=== PATIENT | male | born 1945 | race Hispanic/Latino ===

== ENCOUNTER → 2019-07-13 | Outpatient (CLI) | payer OTHER ==
[~2019-07-13] MED LIST: AMLO10TA7 PO; ASPI-1197 PO; BACL10TA PO; CLOP75TA14 PO; FAMO20TA8 PO; GLIP5TAB11 PO; METF-446 PO; METO25TA6 PO; RAMI10CA69 PO; ROSU20TA23 PO; SERT50TA12 PO; SOLI5 PO; VALS1TAB75 PO
== END | disposition home or self-care (01) ==
LOC: SHCH 10:00
PROVIDERS: ATTEND Internal Medicine Cardiovascular Disease
DX: I51.7 Cardiomegaly (principal)
CPT/HCPCS: 93306

== ENCOUNTER → 2019-07-13 | Outpatient (CLI) | payer OTHER ==
[~2019-07-13] MED LIST changes: +REGADENOSON 0.4 MG/5 ML PF SYG IVP SCH
== END | disposition home or self-care (01) ==
LOC: SHCH 07:49
PROVIDERS: ATTEND Internal Medicine Cardiovascular Disease
DX: I25.119 Atherosclerotic heart disease of native coronary artery with unspecified angina pectoris (principal); I10 Essential (primary) hypertension; I51.7 Cardiomegaly; I73.9 Peripheral vascular disease, unspecified; Z98.61 Coronary angioplasty status
CPT/HCPCS: 78452; 93017; 93306; 96374; A9500 ×2; J2785

== ENCOUNTER → 2019-07-20 | Outpatient (CLI) | payer OTHER ==
[~2019-07-20] MED LIST changes: -REGADENOSON 0.4 MG/5 ML PF SYG IVP SCH
== END | disposition home or self-care (01) ==
LOC: SHCH 10:09
PROVIDERS: ATTEND Internal Medicine Cardiovascular Disease
DX: I73.9 Peripheral vascular disease, unspecified (principal)
CPT/HCPCS: 93925

== ENCOUNTER → 2020-12-01 | Outpatient (CLI) | payer OTHER ==
[~2020-12-01] MED LIST changes: +AMLO-258 PO; -AMLO10TA7 PO; +SERT-439 PO; -SERT50TA12 PO; -VALS1TAB75 PO; +VALS1TAB76 PO
== END | disposition home or self-care (01) ==
LOC: SHCH 07:59
PROVIDERS: ATTEND Internal Medicine Cardiovascular Disease
DX: I10 Essential (primary) hypertension (principal)
CPT/HCPCS: 93975

== ENCOUNTER → 2021-06-01 | Outpatient (CLI) | payer OTHER | END | disposition home or self-care (01) | LOC: SHCH 11:06 | PROVIDERS: ATTEND Internal Medicine Cardiovascular Disease | DX: I70.203 Unspecified atherosclerosis of native arteries of extremities, bilateral legs (principal); I25.10 Atherosclerotic heart disease of native coronary artery without angina pectoris | CPT/HCPCS: 93925 ==

== ENCOUNTER → 2021-06-02 | Outpatient (CLI) | payer OTHER ==
[~2021-06-02] VITALS: Ht 162.6 cm; Wt 98.0 kg
[~2021-06-02] MED LIST changes: +REGADENOSON 0.4 MG/5 ML PF SYG IVP SCH
== END | disposition home or self-care (01) ==
LOC: SHCH 08:06
PROVIDERS: ATTEND Internal Medicine Cardiovascular Disease
DX: I25.10 Atherosclerotic heart disease of native coronary artery without angina pectoris (principal)
CPT/HCPCS: 78452; 93017; 96374; A9500 ×2; J2785

== ENCOUNTER 2021-07-31 09:00 | Day surgery (SDC) | payer OTHER ==
[2021-07-27 12:25] LABS: BASOPHILS % (AUTO) 0.6 % (0.0-5.0); EOSINOPHILS % (AUTO) 3.5 % (0.0-8.0); HEMATOCRIT 35.6 % (42-54); LYMPHOCYTES % (AUTO) 30.1 % (21.0-51.0); MEAN CORPUSCULAR HEMOGLOBIN 29.4 pg (27.0-33.0); MEAN CORPUSCULAR HGB CONC 31.5 g/dL (32.0-36.0); MEAN CORPUSCULAR VOLUME 93.4 fL (79-99); MONOCYTES % (AUTO) 7.9 % (3.0-13.0); NEUTROPHILS % (AUTO) 57.7 % (40.0-77.0); PLATELET COUNT (AUTO) 151 K/uL (130-400); RED BLOOD CELL COUNT(AUTO) 3.81 MIL/uL (4.50-6.20); RED CELL DISTRIBUTION WIDTH 12.6 % (11.0-15.5); WHITE BLOOD COUNT (AUTO) 8.3 K/uL (4.8-10.8)
[2021-07-27 12:28] LABS: APPEARANCE,URINE Clear (CLEAR); BILIRUBIN,URINE Negative (NEGATIVE); COLOR,URINE Yellow (YELLOW); GLUCOSE, URINE (UA) Negative (NEGATIVE); KETONES,URINE Trace mg/dL (NEGATIVE); LEUKOCYTE ESTERASE ,URINE Negative (NEGATIVE); NITRATE,URINE Negative (NEGATIVE); OCCULT BLOOD,URINE Negative (NEGATIVE); PROTEIN,URINE Trace mg/dL (NEGATIVE)
[2021-07-27 12:35] LABS: CREATININE 1.9 mg/dL (0.5-1.5); POTASSIUM 4.6 mmol/L (3.5-5.1)
[2021-07-27 12:38] LABS: INR 1.02 (0.85-1.15); PROTHROMBIN TIME 11.1 SEC (9.6-11.6)
[2021-07-27 12:39] LABS: PARTIAL THROMBOPLASTIN TIME 24.9 SEC (26.3-35.5)
[2021-07-27 13:06] LABS: BACTERIA,URINE Few /HPF (None Seen); RBC,URINE None Seen /HPF (0-1)
[2021-07-27 13:07] LABS: HYALINE CASTS, URINE 0-1 /LPF (0-1 /LPF); SQUAMOUS EPITHELIAL CELL,UR Rare /HPF (0-2); WBC,URINE 0-1 /HPF (0-1)
[2021-07-31] VITALS (9 sets, daily range): BP systolic 104–170; BP diastolic 55–89
[~2021-07-31] VITALS: Ht 162.6 cm; Wt 96.2 kg
[~2021-07-31 09:00] MED LIST changes: -AMLO-258 PO; -ASPI-1197 PO; +ASPI-1443 PO; -BACL10TA PO; -FAMO20TA8 PO; +HYDR200T4 PO; +ISOS30TA92 PO; -METF-446 PO; +METO-391 PO; -METO25TA6 PO; +NAPR-1023 PO; +OLME40TA18 PO; +OMEG-148 PO; +PYRI-12 PO; -RAMI10CA69 PO; -REGADENOSON 0.4 MG/5 ML PF SYG IVP SCH; -ROSU20TA23 PO; +ROSU20TA31 PO; +SOLI10TA7 PO; -SOLI5 PO; +TAMS-1 PO; -VALS1TAB76 PO; +vitamin b12 PO
[2021-07-31 10:05] LABS: CREATININE 1.7 mg/dL (0.5-1.5); POTASSIUM 4.8 mmol/L (3.5-5.1)
[2021-07-31] MEDS ORDERED: 0.9%NACL 1000ML 1,000 ML IV ONE (10:36)
[2021-07-31] MEDS ORDERED: MIDAZOLAM HCL 1 MG/ML 2ML VIAL ONE (13:56)
[2021-07-31] MEDS ORDERED: IOHEXOL 350 MG/ML 100ML INFUS..BTL IV ONE (13:56)
[2021-07-31] MEDS ORDERED: MEPERIDINE-PF 25 MG/ML SYG ONE (13:56)
[2021-07-31] MEDS ORDERED: NITROGLYCERIN 2 MG VIAL IV ONE (13:56)
[2021-07-31] MEDS ORDERED: IOHEXOL-350 50ML VIAL IV ONE (13:56)
[2021-07-31] MEDS ORDERED: LIDOCAINE HCL 400MG/20ML VIAL ONE (13:56)
[2021-07-31] MEDS ORDERED: SODIUM BICARB 50MEQ 50ML VIAL 50 ML ONE (14:07)
[2021-07-31] MEDS ORDERED: 0.9%NACL 1000ML 1,000 ML IV SCH (15:30)
[2021-07-31] MEDS ORDERED: DEXTROSE 50%-WATER 50 ML DISP.SYRIN IV PRN (15:30)
[2021-07-31] MEDS ORDERED: GLUCAGON 1MG KIT 1 MG ML IM PRN (15:30)
[2021-07-31] MEDS ORDERED: INSULIN HUMULIN R 100 UNIT/ML 3ML SQ SCH (16:30)
== END 2021-07-31 19:40 | disposition home or self-care (01) ==
LOC: DAH 09:00
PROVIDERS: ATTEND Internal Medicine Cardiovascular Disease
DX: I25.119 Atherosclerotic heart disease of native coronary artery with unspecified angina pectoris (principal); I10 Essential (primary) hypertension; E78.5 Hyperlipidemia, unspecified; E11.9 Type 2 diabetes mellitus without complications; E66.9 Obesity, unspecified; G47.33 Obstructive sleep apnea (adult) (pediatric); Z68.36 Body mass index [BMI] 36.0-36.9, adult; Z79.01 Long term (current) use of anticoagulants; Z95.5 Presence of coronary angioplasty implant and graft; Z79.82 Long term (current) use of aspirin; Z79.899 Other long term (current) drug therapy; Z98.890 Other specified postprocedural states
CPT/HCPCS: 36415 ×2; 71045; 80048 ×2; 81001; 82948 ×2; 85025; 85610; 85730; 93005; 93458; A4215; A4216; A4221; A4222; A4223 ×3; A4606; A4663; C1760; C1894; J1644; J2175; J2250; J3490 ×3; J7030; Q9965; Q9967 ×2; 99156; 99157

== ENCOUNTER 2022-03-30 10:57 | Observation (INO) | payer OTHER ==
[~2022-03-30] VITALS: Ht 162.6 cm; Wt 117.9 kg
[~2022-03-30 10:57] MED LIST changes: -NAPR-1023 PO
[2022-03-30 11:46] LABS: BASOPHILS % (AUTO) 0.3 % (0.0-5.0); HEMATOCRIT 37.3 % (42-54); LYMPHOCYTES % (AUTO) 9.5 % (21.0-51.0); MEAN CORPUSCULAR HEMOGLOBIN 29.6 pg (27.0-33.0); MEAN CORPUSCULAR HGB CONC 32.7 g/dL (32.0-36.0); MEAN CORPUSCULAR VOLUME 90.5 fL (79-99); MONOCYTES % (AUTO) 10.8 % (3.0-13.0); NEUTROPHILS % (AUTO) 78.8 % (40.0-77.0); PLATELET COUNT (AUTO) 135 K/uL (130-400); RED BLOOD CELL COUNT(AUTO) 4.12 MIL/uL (4.50-6.20); WHITE BLOOD COUNT (AUTO) 6.2 K/uL (4.8-10.8)
[2022-03-30 11:56] LABS: CREATININE 1.9 mg/dL (0.5-1.5); POTASSIUM 4.3 mmol/L (3.5-5.1)
[2022-03-30 12:01] LABS: BILIRUBIN,TOTAL 0.3 mg/dL (0.2-1.0); TOTAL PROTEIN, SERUM 7.8 g/dL (6.0-8.3)
[2022-03-30] MEDS ORDERED: METO-408 PO (14:55)
[2022-03-30] MEDS ORDERED: ISOS30TA92 PO (14:55)
[2022-03-30] MEDS ORDERED: CLON1PAT13 TD (14:55)
[2022-03-30] MEDS ORDERED: SOLI10TA7 PO (14:55)
[2022-03-30] MEDS ORDERED: PANT40TA54 PO (14:55)
[2022-03-30] MEDS ORDERED: NAPR-1023 PO (14:55)
[2022-03-30] MEDS ORDERED: TETANUS/DIPHTHERIA TOXOID [ADULT] 0.5 ML VIAL IM ONE (15:00)
[2022-03-30] MEDS ORDERED: NAPROXEN 500 MG TABLET PO PRN (15:30)
[2022-03-30] MEDS: INSULIN HUMULIN R 100 UNIT/ML 3ML SQ SCH ×2 (16:30→20:35)
[2022-03-30] MEDS: DEXTROSE 5 % AND 0.9 % NACL 1,000 ML IV SCH (17:24)
[2022-03-30] MEDS: ISOSORBIDE MONO 30MG SR TAB PO SCH (20:24)
[2022-03-30] MEDS: HYDROXYCHLOROQUINE SULFATE 200 MG TAB PO SCH (20:35)
[2022-03-30] MEDS ORDERED: ISOSORBIDE MONO 30MG SR TAB PO SCH (21:00)
[2022-03-30] MEDS ORDERED: SOLIFENACIN SUCCINATE 10 MG PO SCH (21:00)
[2022-03-30] MEDS ORDERED: (Rosuvastatin Calcium 20 MG) PO SCH (21:00)
[2022-03-30] MEDS ORDERED: PANTOPRAZOLE 40 MG TAB DR PO SCH (21:00)
[2022-03-31] MEDS: DEXTROSE 5 % AND 0.9 % NACL 1,000 ML IV SCH ×2 (04:46→17:58)
[2022-03-31 06:19] LABS: APPEARANCE,URINE CLEAR (CLEAR); BILIRUBIN,URINE NEGATIVE (NEGATIVE); COLOR,URINE YELLOW (YELLOW); GLUCOSE, URINE (UA) NEGATIVE (NEGATIVE); KETONES,URINE NEGATIVE (NEGATIVE); LEUKOCYTE ESTERASE ,URINE NEGATIVE (NEGATIVE); NITRATE,URINE NEGATIVE (NEGATIVE); OCCULT BLOOD,URINE TRACE-INTACT (NEGATIVE); PROTEIN,URINE 30 mg/dL (NEGATIVE); UROBILINOGEN,URINE 0.2 mg/dL (0.2-1.0)
[2022-03-31 06:46] LABS: BACTERIA,URINE None Seen /HPF (None Seen); RBC,URINE 0-1 /HPF (0-1); WBC,URINE None Seen /HPF (0-1)
[2022-03-31 06:47] LABS: SQUAMOUS EPITHELIAL CELL,UR Rare /HPF (0-2)
[2022-03-31] MEDS: INSULIN HUMULIN R 100 UNIT/ML 3ML SQ SCH ×3 (07:30→16:30)
[2022-03-31] MEDS ORDERED: GLUCAGON 1MG KIT 1 MG ML IM PRN (08:30)
[2022-03-31] MEDS ORDERED: KCL 20 MEQ ERTAB PO PRN (08:30)
[2022-03-31] MEDS ORDERED: POTASSIUM CHLORIDE 20MEQ/100ML 100 ML IV PRN (08:30)
[2022-03-31] MEDS ORDERED: CLONIDINE HCL 0.1 MG TABLET PO PRN (08:30)
[2022-03-31] MEDS ORDERED: POTASSIUM CHLORIDE 10% ELIXIR 20 MEQ/15 ML UDCUP PO PRN (08:30)
[2022-03-31] MEDS ORDERED: LIDOCAINE HCL-MPF 1% 2ML VIAL IV PRN (08:30)
[2022-03-31] MEDS ORDERED: DEXTROSE 50%-WATER 50 ML DISP.SYRIN IV PRN (08:30)
[2022-03-31 08:45] LABS: BASOPHILS % (AUTO) 0.5 % (0.0-5.0); EOSINOPHILS % (AUTO) 1.2 % (0.0-8.0); HEMATOCRIT 39.2 % (42-54); LYMPHOCYTES % (AUTO) 38.9 % (21.0-51.0); MEAN CORPUSCULAR HEMOGLOBIN 29.8 pg (27.0-33.0); MEAN CORPUSCULAR HGB CONC 32.7 g/dL (32.0-36.0); MEAN CORPUSCULAR VOLUME 91.2 fL (79-99); MONOCYTES % (AUTO) 12.1 % (3.0-13.0); PLATELET COUNT (AUTO) 149 K/uL (130-400); RED CELL DISTRIBUTION WIDTH 13.1 % (11.0-15.5); WHITE BLOOD COUNT (AUTO) 7.5 K/uL (4.8-10.8)
[2022-03-31] MEDS ORDERED: Olmesartan Medoxomil 40 MG PO SCH (09:00)
[2022-03-31] MEDS ORDERED: FISH OIL 1000 MG/CAP PO SCH (09:00)
[2022-03-31] MEDS ORDERED: TAMSULOSIN HCL 0.4 MG CAP.ER.24H PO SCH (09:00)
[2022-03-31] MEDS ORDERED: CYANOCOBALAMIN (VITAMIN B-12) 1,000 MCG TABLET PO SCH (09:00)
[2022-03-31] MEDS ORDERED: METOPROLOL SUCCINATE 25 MG TAB.SR.24H PO SCH (09:00)
[2022-03-31] MEDS ORDERED: ASPIRIN 81 MG EC TAB PO SCH (09:00)
[2022-03-31] MEDS ORDERED: PYRIDOXINE HCL 50 MG TABLET PO SCH (09:00)
[2022-03-31] MEDS ORDERED: LIDOCAINE HCL MPF 1% 5ML VIAL IV PRN (09:00)
[2022-03-31] MEDS: HYDROXYCHLOROQUINE SULFATE 200 MG TAB PO SCH (09:00)
[2022-03-31 09:11] LABS: CREATININE 1.7 mg/dL (0.5-1.5); POTASSIUM 4.3 mmol/L (3.5-5.1)
[2022-03-31] MEDS: ISOSORBIDE MONO 30MG SR TAB PO SCH (09:32)
[2022-03-31] MEDS ORDERED: BENZONATATE 100 MG CAPSULE PO PRN (10:00)
[2022-03-31] MEDS ORDERED: GUAIFENESIN-DM 200/20 MG 10 ML PO PRN (10:00)
[2022-03-31] MEDS ORDERED: ENOXAPARIN SODIUM 100 MG/1 ML SQ SCH (12:00)
[2022-03-31] MEDS ORDERED: NIRM1TAB5 PO (15:04)
[2022-03-31 19:21] VITALS: BP 126/64
[2022-04-01] MEDS ORDERED: ENOXAPARIN SODIUM 120 MG/0.8ML SQ SCH (09:00)
[2022-04-06] MEDS ORDERED: CLONIDINE 0.2 MG/ 24 HR PATCH TD SCH (09:00)
== END 2022-03-31 20:34 | disposition home or self-care (01) ==
LOC: EDH 10:57 → EDHIP 15:04
PROVIDERS: ADMIT Internal Medicine Critical Care Medicine; ATTEND Internal Medicine Critical Care Medicine
DX: U07.1 COVID-19 (principal); R55 Syncope and collapse; E11.649 Type 2 diabetes mellitus with hypoglycemia without coma; R79.89 Other specified abnormal findings of blood chemistry; S01.511A Laceration without foreign body of lip, initial encounter; E11.22 Type 2 diabetes mellitus with diabetic chronic kidney disease; I12.9 Hypertensive chronic kidney disease with stage 1 through stage 4 chronic kidney disease, or unspecified chronic kidney disease; N18.32 Chronic kidney disease, stage 3b; D63.1 Anemia in chronic kidney disease; N17.9 Acute kidney failure, unspecified; I25.10 Atherosclerotic heart disease of native coronary artery without angina pectoris; I48.91 Unspecified atrial fibrillation; E78.5 Hyperlipidemia, unspecified; E66.01 Morbid (severe) obesity due to excess calories; Z68.41 Body mass index [BMI] 40.0-44.9, adult; Z95.5 Presence of coronary angioplasty implant and graft; Z23 Encounter for immunization; W19.XXXA Unspecified fall, initial encounter; Y93.89 Activity, other specified; Y92.89 Other specified places as the place of occurrence of the external cause
CPT/HCPCS: 36415 ×2; 70450; 71045; 80048; 80053; 81001; 82948 ×5; 84484 ×2; 85025 ×2; 87635; 87804 ×2; 90471; 90714; 93005 ×2; 93306; 93356; 96360; 96361 ×2; 96372 ×2; 99285; C9803; G0378 ×29

== ENCOUNTER → 2022-04-18 | Outpatient (CLI) | payer OTHER ==
[~2022-04-18] MED LIST changes: +ALBUTEROL 0.083% 2.5 MG/3 ML INH IH ONE; +CLON1PAT13 TD; -CLOP75TA14 PO; -GLIP5TAB11 PO; -HYDR200T4 PO; -METO-391 PO; +METO-408 PO; +NAPR-1023 PO; +NIRM1TAB5 PO; -OLME40TA18 PO; +PANT40TA54 PO; -SERT-439 PO
== END | disposition home or self-care (01) ==
LOC: EDBD → RESP 09:57
PROVIDERS: ATTEND Internal Medicine Cardiovascular Disease
DX: R06.00 Dyspnea, unspecified (principal); R06.02 Shortness of breath; Z86.16 Personal history of COVID-19
CPT/HCPCS: 94060; 94727; 94729

== ENCOUNTER → 2022-06-27 | Outpatient (CLI) | payer OTHER ==
[~2022-06-27] MED LIST changes: -ALBUTEROL 0.083% 2.5 MG/3 ML INH IH ONE
== END | disposition home or self-care (01) ==
LOC: RAH 14:27
PROVIDERS: ATTEND Internal Medicine Critical Care Medicine
DX: J84.10 Pulmonary fibrosis, unspecified (principal); M47.815 Spondylosis without myelopathy or radiculopathy, thoracolumbar region; I25.10 Atherosclerotic heart disease of native coronary artery without angina pectoris; K82.8 Other specified diseases of gallbladder
CPT/HCPCS: 71250

== ENCOUNTER → 2023-12-14 | Outpatient (CLI) | payer OTHER ==
[~2023-12-14] MED LIST changes: -ROSU20TA31 PO; +ROSU20TA73 PO
== END | disposition home or self-care (01) ==
LOC: SHCH 13:25
PROVIDERS: ATTEND Internal Medicine Cardiovascular Disease
DX: I25.10 Atherosclerotic heart disease of native coronary artery without angina pectoris (principal); I51.7 Cardiomegaly; R07.9 Chest pain, unspecified
CPT/HCPCS: 93306

== ENCOUNTER → 2023-12-20 | Outpatient (CLI) | payer OTHER ==
[2023-12-20] MEDS: REGADENOSON 0.4 MG/5 ML PF SYG IVP ONE (13:52)
== END | disposition home or self-care (01) ==
LOC: SHCH 09:09
PROVIDERS: ATTEND Internal Medicine Cardiovascular Disease
DX: I25.10 Atherosclerotic heart disease of native coronary artery without angina pectoris (principal); R07.9 Chest pain, unspecified
CPT/HCPCS: 78452; 93017; J2785; A9500 ×2; 96374

== ENCOUNTER → 2024-11-09 | Outpatient (CLI) | payer OTHER ==
[~2024-11-09] MED LIST changes: -ROSU20TA73 PO; +ROSU20TA98 PO
--- NOTE | 2024-11-10 12:15 | HMCSR ---
APPROVED REPORT Laterality: Bilateral Indications r09.89 Doppler Spectral Velocity Analysis PSV / EDVPSV / EDV ECA (R) 76 / cm/sECA (L) 120 / cm/s dICA (R) 110 / 30 cm/sdICA (L) 121 / 33 cm/s Kristyn (R) 87 / 22 cm/smICA (L) 85 / 23 cm/s pICA (R) 78 / 19 cm/spICA (L) 71 / 15 cm/s dCCA (R) 68 / 15 cm/sdCCA (L) 95 / 19 cm/s mCCA (R) 62 / 13 cm/smCCA (L) 90 / 15 cm/s pCCA (R) 70 / 15 cm/spCCA (L) 93 / 15 cm/s Vert (R) 84 / cm/sVert (L) Subl. (R) 189 / cm/sSubl. (L) 263 / cm/s ICA/CCA 1.57ICA/CCA 1.27 Technologist Impression Mild plaque noted in the bilateral carotid bulbs. Right ICA and Left ICA appear patent, without hemodynamic significance. Right vertebral artery appears antegrade. Left vertebral artery appears occluded. Moderately increased velocities in the left subclavian artery. Conclusion Mild plaque noted in the bilateral carotid bulbs. Right ICA and Left ICA appear patent, without hemodynamic significance. Right vertebral artery appears antegrade. Left vertebral artery appears occluded. Moderately increased velocities in the left subclavian artery. Conclusion Mild plaque noted in the bilateral carotid bulbs. Right ICA and Left ICA appear patent, without hemodynamic significance. Right vertebral artery appears antegrade. Left vertebral artery appears occluded. Moderately increased velocities in the left subclavian artery.
== END | disposition home or self-care (01) ==
LOC: SHCH 10:06
PROVIDERS: ATTEND Internal Medicine Cardiovascular Disease
DX: I65.23 Occlusion and stenosis of bilateral carotid arteries (principal); R09.89 Other specified symptoms and signs involving the circulatory and respiratory systems
CPT/HCPCS: 93880